=== PATIENT | female | born 1970 | race American Indian/Alaskan Native ===

== ENCOUNTER 2016-11-25 20:01 | Emergency (ER) | payer MEDICAID, OTHER ==
[2016-11-25 20:01] VITALS: BMI 20.5
[2016-11-25 20:12] VITALS: BP 135/71; PULSE 95; RESP 16; TEMP 98.2; O2SAT 100
== END 2016-11-25 23:07 | disposition left against medical advice (07) ==
LOC: H.ER 20:01
DX: Z02.89 Encounter for other administrative examinations (principal)

== ENCOUNTER 2016-12-13 03:48 | Emergency (ER) | payer OTHER ==
[2016-12-13 03:49] VITALS: BMI 20.5
[2016-12-13 04:42] VITALS: BP 115/71; PULSE 90; RESP 16; TEMP 98.2; O2SAT 99
--- NOTE | 2016-12-13 04:48 | ED PDOC ---
HPI: Abdomen Time Seen by Provider: 12/13/16 03:50 Chief Complaint (Nursing): Abdominal Pain Chief Complaint (Provider): knee pain, would like rebeka bandage History Per: Patient Onset/Duration Of Symptoms: Other Current Symptoms Are (Timing): Other (unsure) Pain Scale Rating Of: 5 Quality Of Discomfort: Unable To Describe Associated Symptoms: Vomiting. denies: Fever, Diarrhea, Loss Of Appetite Additional History Per: Patient Additional Complaint(s): 46 y/o female presented to ED with chief compliant of abdominal pain with vomiting, however at time of evaluation, pt reports her left knee hurts and would like a rebeka bandage, and as far as the vomiting goes, she started vomiting yesterday but does not want it to be worked up as she will be seeing a specialist tomorrow. at this point she would like a rebeka bandage for knee, does not want anything else worked up. No other complaints otherwise Past Medical History Vital Signs: Last Vital Signs Temp 98.2 F 12/13/16 04:00 Pulse 90 12/13/16 04:00 Resp 16 12/13/16 04:00 BP 115/71 12/13/16 04:00 Pulse Ox 99 12/13/16 04:58 - Medical History PMH: Bronchitis, Depression (denies), Schizophrenia (denies) - Surgical History Surgical History: Back Surgery - Family History Family History: States: Unknown Family Hx - Immunization History Hx Tetanus Toxoid Vaccination: No Hx Influenza Vaccination: No Hx Pneumococcal Vaccination: No - Home Medications Home Medications: Ambulatory Orders Medication Instructions Recorded Famotidine [Pepcid] 20 mg PO BID PRN #15 tab 12/03/16 Ketoconazole 2% Cr [Nizoral] 15 gm EXT DAILY #1 tube 12/03/16 Ondansetron [Zofran Odt] 4 mg PO Q8 PRN #10 odt 12/03/16 - Allergies Allergies/Adverse Reactions: Allergies Allergy/AdvReac Type Severity Reaction Status Date / Time Penicillins AdvReac VAGINAL Verified 12/03/16 10:54 INFECTION Review of Systems Constitutional: Negative for: Fever Cardiovascular: Negative for: Chest Pain, Light Headedness Respiratory: Negative for: Cough, Shortness of Breath Gastrointestinal: Positive for: Vomiting, Abdominal Pain Genitourinary Female: Negative for: Dysuria, Frequency, Vaginal Discharge, Vaginal Bleeding Musculoskeletal: Positive for: Other (knee pain ) Skin: Positive for: Other (irritable ) Neurological: Negative for: Weakness, Numbness, Dizziness Physical Exam - Physical Exam Appears: Positive for: No Acute Distress Head Exam: Positive for: NORMOCEPHALIC Skin: Positive for: Warm, Dry Cardiovascular/Chest: Positive for: Regular Rate, Rhythm, Chest Non Tender. Negative for: Edema, Murmur Respiratory: Positive for: Normal Breath Sounds. Negative for: Wheezing, Respiratory Distress Gastrointestinal/Abdominal: Positive for: Bowel Sounds, Soft. Negative for: Tenderness, Organomegaly, Mass, Distended, Guarding Extremity: Positive for: Normal ROM, Tenderness. Negative for: Calf Tenderness , Deformity, Swelling Neurologic/Psych: Positive for: Alert, gun stocker II-XII, Oriented. Negative for: Motor/Sensory Deficits - ECG O2 Sat by Pulse Oximetry: 99 - Progress ED Course And Treament: Pt declines work up of presenting chief complaint, left knee wrapped in rebeka bandage Pt PE WNL, pt advised to follow up with her PCP Disposition - Clinical Impression Clinical Impression: Knee pain, chronic - Patient ED Disposition Is Patient to be Admitted: No - Disposition Disposition: Routine/Home Disposition Time: 04:50 Condition: STABLE Additional Instructions: Please follow up with your PCP in the next 48hrs If vomiting persist return to ED Drink lot of water to stay hydrated Instructions: Knee Pain (ED)
== END 2016-12-13 06:51 | disposition home or self-care (01) ==
LOC: H.ER 03:48
DX: Z86.59 Personal history of other mental and behavioral disorders (principal)

== ENCOUNTER 2017-01-03 19:10 | Emergency (ER) | payer OTHER ==
[2017-01-03 19:10] VITALS: BMI 20.5
[2017-01-03 19:27] VITALS: BP 122/74; PULSE 92; RESP 16; TEMP 98.6; O2SAT 100
[2017-01-03] MEDS ORDERED: DiphenhydrAMINE 50 mg/ml Inj IM STA (19:38)
--- NOTE | 2017-01-03 19:41 | ED PDOC ---
HPI: Skin/Bite Injury Time Seen by Provider: 01/03/17 19:29 Chief Complaint (Nursing): Abnormal Skin Integrity Chief Complaint (Provider): Abnormal Skin Integrity History Per: Patient History/Exam Limitations: no limitations Current Symptoms Are (Timing): Still Present Additional Complaint(s): Diane Garsia is a 46 year old female who presents to the emergency department with a complaint of general body itch associated with secondary left knee pain. Denied fever or chills. Patient was recently seen at [facility] for the left knee pain where a knee brace was applied and xray was performed which showed no findings of acute changes. She stated she is having a possible allergic reaction to her Risperdal. PMD: none provided Past Medical History Reviewed: Historical Data, Nursing Documentation, Vital Signs Vital Signs: Last Vital Signs Temp 98.6 F 01/03/17 19:24 Pulse 92 H 01/03/17 19:24 Resp 16 01/03/17 19:24 BP 122/74 01/03/17 19:24 Pulse Ox 100 01/03/17 19:41 - Medical History PMH: Bronchitis, Depression (denies), Schizophrenia (denies) - Surgical History Surgical History: Back Surgery - Family History Family History: States: Unknown Family Hx - Immunization History Hx Tetanus Toxoid Vaccination: No Hx Influenza Vaccination: No Hx Pneumococcal Vaccination: No - Home Medications Home Medications: Ambulatory Orders Medication Instructions Recorded No Known Home Med 12/18/16 - Allergies Allergies/Adverse Reactions: Allergies Allergy/AdvReac Type Severity Reaction Status Date / Time Penicillins AdvReac VAGINAL Verified 12/18/16 00:32 INFECTION Review of Systems ROS Statement: Except As Marked, All Systems Reviewed And Found Negative Constitutional: Negative for: Fever, Chills Musculoskeletal: Positive for: Other (left knee pain) Skin: Positive for: Rash (general throughout body) Physical Exam - Reviewed Nursing Documentation Reviewed: Yes Vital Signs Reviewed: Yes - Physical Exam Appears: Positive for: Well, Non-toxic, No Acute Distress Head Exam: Positive for: ATRAUMATIC, NORMAL INSPECTION, NORMOCEPHALIC Skin: Positive for: Normal Color. Negative for: Rash Cardiovascular/Chest: Positive for: Regular Rate, Rhythm Respiratory: Positive for: CNT, Normal Breath Sounds Back: Positive for: Normal Inspection Extremity: Positive for: Normal ROM, Other (left knee brace applied). Negative for: Deformity, Swelling Neurologic/Psych: Positive for: Alert (x3), project archivist II-XII, Oriented - ECG O2 Sat by Pulse Oximetry: 100 (RA) Pulse Ox Interpretation: Normal Medical Decision Making Medical Decision Making: Initial Impression: Left knee pain; Itchiness Initial Plan: * Benadryl 25mg IM Time: 1939 --Upon provider evaluation, patient medically stable and requires no further treatment in the ED at this time. Patient will be discharged home. Counseling was provided and all questions were answered regarding diagnosis and need for follow up with PCP. There is agreement to discharge plan. Return if symptoms persist or worsen. Clinical Impression: Left knee pain; General Itchiness Scribe Attestation: Documented by Leonarda Quinonez, acting as a scribe for Renetta Leblanc MD. Provider Scribe Attestation: All medical record entries made by the Scribe were at my direction and personally dictated by me. I have reviewed the chart and agree that the record accurately reflects my personal performance of the history, physical exam, medical decision making, and the department course for this patient. I have also personally directed, reviewed, and agree with the discharge instructions and disposition. Disposition - Clinical Impression Clinical Impression: Itching, Knee pain - Patient ED Disposition Is Patient to be Admitted: No Doctor Will See Patient In The: Office Counseled Patient/Family Regarding: Diagnosis, Need For Followup - Disposition Referrals: Kee Acevedo MD [Staff Provider] - Disposition: Routine/Home Disposition Time: 19:40 Condition: STABLE Instructions: Knee Pain (ED), Itchy Skin (ED) Forms: [employer] (Vietnamese)
== END 2017-01-03 20:20 | disposition home or self-care (01) ==
LOC: H.ER 19:10
DX: R21 Rash and other nonspecific skin eruption (principal); M25.562 Pain in left knee; Z88.0 Allergy status to penicillin

== ENCOUNTER 2017-01-21 13:09 | Emergency (ER) | payer OTHER ==
[2017-01-21 13:09] VITALS: BMI 20.5
[2017-01-21 13:13] VITALS: BP 118/54; PULSE 92; RESP 16; TEMP 97; O2SAT 99
--- NOTE | 2017-01-21 14:59 | ED PDOC ---
HPI: General Adult Time Seen by Provider: 01/21/17 13:33 Chief Complaint (Nursing): Abnormal Skin Integrity Chief Complaint (Provider): leg pain History Per: Patient History/Exam Limitations: no limitations Additional Complaint(s): 46yo F states to [facility]LP her left leg sprain and is requesting an orthopedic referral. Pt did not mention to MLP rash. denies hematuira. Pt is homeless and does not have a PMD Past Medical History Reviewed: Historical Data, Nursing Documentation, Vital Signs Vital Signs: Last Vital Signs Temp 97 F L 01/21/17 13:11 Pulse 92 H 01/21/17 13:11 Resp 16 01/21/17 13:11 BP 118/54 L 01/21/17 13:11 Pulse Ox 99 01/21/17 13:11 - Medical History PMH: Bronchitis, Depression (denies), Schizophrenia (denies) - Surgical History Surgical History: Back Surgery - Family History Family History: States: Unknown Family Hx - Immunization History Hx Tetanus Toxoid Vaccination: No Hx Influenza Vaccination: No Hx Pneumococcal Vaccination: No - Home Medications Home Medications: Ambulatory Orders Medication Instructions Recorded No Known Home Med 12/18/16 - Allergies Allergies/Adverse Reactions: Allergies Allergy/AdvReac Type Severity Reaction Status Date / Time Penicillins AdvReac VAGINAL Unverified 01/21/17 13:14 INFECTION Review of Systems ROS Statement: Except As Marked, All Systems Reviewed And Found Negative Skin: Negative for: Rash Physical Exam - Reviewed Nursing Documentation Reviewed: Yes Vital Signs Reviewed: Yes - Physical Exam Appears: Positive for: Well, Non-toxic, No Acute Distress Skin: Positive for: Normal Color, Warm, DRY Cardiovascular/Chest: Positive for: Regular Rate, Rhythm Respiratory: Positive for: CNT, Normal Breath Sounds Extremity: Positive for: Normal ROM. Negative for: Swelling Neurologic/Psych: Positive for: Alert, Oriented - ECG O2 Sat by Pulse Oximetry: 99 Medical Decision Making Medical Decision Making: pt requests to rest in ER. allowed to do so and advised to have f/u with a pmd. Disposition - Clinical Impression Clinical Impression: Knee pain, chronic - Patient ED Disposition Is Patient to be Admitted: No Counseled Patient/Family Regarding: Studies Performed, Diagnosis, Need For Followup - Disposition Referrals: [facility] [Outside] Disposition: Routine/Home Disposition Time: 15:01 Condition: STABLE Instructions: Knee Pain (ED) Forms: [employer] (Khmer)
== END 2017-01-21 15:33 | disposition home or self-care (01) ==
LOC: H.ER 13:09
DX: M25.562 Pain in left knee (principal)

== ENCOUNTER 2017-01-23 18:52 | Emergency (ER) | payer OTHER ==
[2017-01-23 18:52] VITALS: BMI 20.5
[2017-01-23 19:05] VITALS: BP 114/58; PULSE 92; RESP 18; TEMP 98.3; O2SAT 100
--- NOTE | 2017-01-23 19:52 | ED PDOC ---
HPI: SOB/CHF/COPD Time Seen by Provider: 01/23/17 19:40 Chief Complaint (Nursing): Shortness Of Breath Chief Complaint (Provider): Shortness of breath. Dermatitis History Per: Patient History/Exam Limitations: no limitations Additional Complaint(s): Diane Garsia is known to the ED for multiple visits who presents to the ED today for chief complaints of dermatitis and shortness of breath. Patient reports itching in various body areas. states she thinks she is allergic to her medication. Denies any associated symptoms. Of note, patient ran out of Benadryl medication and needs more of it, and also has a history of asthma and needs her albuterol medication. PMD: None. Past Medical History Reviewed: Historical Data, Nursing Documentation, Vital Signs Vital Signs: Last Vital Signs Temp 98.3 F 01/23/17 19:03 Pulse 92 H 01/23/17 19:03 Resp 18 01/23/17 19:21 BP 114/58 L 01/23/17 19:03 Pulse Ox 100 01/23/17 20:03 - Medical History PMH: Bronchitis, Depression (denies), Schizophrenia (denies) - Surgical History Surgical History: Back Surgery - Family History Family History: States: Unknown Family Hx - Immunization History Hx Tetanus Toxoid Vaccination: No Hx Influenza Vaccination: No Hx Pneumococcal Vaccination: No - Home Medications Home Medications: Ambulatory Orders Medication Instructions Recorded Albuterol HFA [Ventolin HFA 90 2 puff IH Q6 #200 puff 01/23/17 mcg/actuation (8 g)] DiphenhydrAMINE [Benadryl] 25 mg PO Q6 PRN #20 cap 01/23/17 Mask, Face [Nebulizer Aerosol Mask 1 dev XX PRN PRN #1 dev 01/23/17 Adult] Nitrofurantoin Macrocrystals 100 mg PO BID #14 cap 01/24/17 [Macrobid] - Allergies Allergies/Adverse Reactions: Allergies Allergy/AdvReac Type Severity Reaction Status Date / Time Penicillins AdvReac VAGINAL Verified 01/23/17 19:03 INFECTION Review of Systems ROS Statement: Except As Marked, All Systems Reviewed And Found Negative Constitutional: Positive for: Other (Itchy in various body areas.) Respiratory: Positive for: Shortness of Breath Physical Exam - Reviewed Nursing Documentation Reviewed: Yes Vital Signs Reviewed: Yes - Physical Exam Appears: Positive for: Well, Non-toxic, No Acute Distress Head Exam: Positive for: ATRAUMATIC, NORMAL INSPECTION, NORMOCEPHALIC Skin: Positive for: Normal Color, Dry Eye Exam: Positive for: Normal appearance ENT: Positive for: Normal ENT Inspection Neck: Positive for: Normal Cardiovascular/Chest: Positive for: Regular Rate, Rhythm Respiratory: Positive for: Normal Breath Sounds Gastrointestinal/Abdominal: Positive for: Normal Exam Back: Positive for: Normal Inspection Rectal: Positive for: Deferred Extremity: Positive for: Normal ROM Lymphatic: Positive for: Deferred Neurologic/Psych: Positive for: Alert, Oriented - ECG O2 Sat by Pulse Oximetry: 100 (RA) Pulse Ox Interpretation: Normal Medical Decision Making Medical Decision Makin: Initial Impression: Dermatitis and asthma. Initial Plan: * Benadryl * Re-Evaluation Patient advised to follow up with PMD. Scribe Attestation: Documented by Janay Stoner acting as a scribe for Bisi Bob PA-C. Provider Scribe Attestation: All medical record entries made by the Scribe were at my direction and personally dictated by me. I have reviewed the chart and agree that the record accurately reflects my personal performance of the history, physical exam, medical decision making, and the department course for this patient. I have also personally directed, reviewed, and agree with the discharge instructions and disposition. Time Disposition - Clinical Impression Clinical Impression: Asthma, Itching - Patient ED Disposition Is Patient to be Admitted: No Counseled Patient/Family Regarding: Need For Followup - Disposition Disposition: Routine/Home Disposition Time: 13:24 Condition: STABLE Prescriptions: Albuterol HFA [Ventolin HFA 90 mcg/actuation (8 g)] 2 puff IH Q6 #200 puff DiphenhydrAMINE [Benadryl] 25 mg PO Q6 PRN #20 cap PRN Reason: Itching / Pruritus Mask, Face [Nebulizer Aerosol Mask Adult] 1 dev XX PRN PRN #1 dev PRN Reason: Cough Instructions: Asthma (ED) Forms: [employer] (Telugu)
== END 2017-01-23 19:57 | disposition home or self-care (01) ==
LOC: H.ER 18:52
DX: J45.909 Unspecified asthma, uncomplicated (principal); L29.9 Pruritus, unspecified

== ENCOUNTER 2017-01-24 21:00 | Emergency (ER) | payer OTHER ==
[2017-01-24 21:00] VITALS: BMI 20.5
[2017-01-24 21:07] VITALS: BP 125/74; PULSE 84; RESP 20; TEMP 98; O2SAT 100
--- NOTE | 2017-01-24 21:16 | ED PDOC ---
HPI: Female Pain Time Seen by Provider: 01/24/17 21:09 Chief Complaint (Nursing): Female Genitourinary Chief Complaint (Provider): dysuria, urgency History Per: Patient History/Exam Limitations: no limitations Additional Complaint(s): 46 year old non-domiciled female with history of urinary tract infections who presents to the ED with a chief complaint of dysuria and urgency that started 3 days ago. She denies abd pain, back pain, fever, chills, nausea or vomiting. Patient denies any concern for STD. PMD: None. Past Medical History Reviewed: Historical Data, Nursing Documentation, Vital Signs Vital Signs: Last Vital Signs Temp 98.0 F 01/24/17 21:05 Pulse 84 01/24/17 21:05 Resp 20 01/24/17 21:05 BP 125/74 01/24/17 21:05 Pulse Ox 100 01/24/17 21:05 - Medical History PMH: Bronchitis - Surgical History Surgical History: Back Surgery Other surgeries: Left leg surgery. - Family History Family History: States: No Known Family Hx - Living Arrangements Living Arrangements: Other (non-domiciled) - Social History Current smoker - smoking cessation education provided: Yes Ex-Smoker (has not smoked in the last 12 months): No Alcohol: None Drugs: Denies - Immunization History Hx Tetanus Toxoid Vaccination: No Hx Influenza Vaccination: No Hx Pneumococcal Vaccination: No - Home Medications Home Medications: Ambulatory Orders Medication Instructions Recorded Albuterol HFA [Ventolin HFA 90 2 puff IH Q6 #200 puff 01/23/17 mcg/actuation (8 g)] DiphenhydrAMINE [Benadryl] 25 mg PO Q6 PRN #20 cap 01/23/17 Mask, Face [Nebulizer Aerosol Mask 1 dev XX PRN PRN #1 dev 01/23/17 Adult] Nitrofurantoin Macrocrystals 100 mg PO BID #14 cap 01/24/17 [Macrobid] - Allergies Allergies/Adverse Reactions: Allergies Allergy/AdvReac Type Severity Reaction Status Date / Time Penicillins AdvReac VAGINAL Verified 01/23/17 19:03 INFECTION Review of Systems ROS Statement: Except As Marked, All Systems Reviewed And Found Negative Constitutional: Negative for: Fever, Chills Cardiovascular: Negative for: Chest Pain Respiratory: Negative for: Cough Gastrointestinal: Negative for: Nausea, Vomiting Genitourinary Female: Positive for: Dysuria, Frequency (and urgency) Neurological: Negative for: Headache, Dizziness Physical Exam - Reviewed Nursing Documentation Reviewed: Yes Vital Signs Reviewed: Yes - Physical Exam Appears: Positive for: Well, Non-toxic, No Acute Distress Cardiovascular/Chest: Positive for: Regular Rate, Rhythm, Murmur Respiratory: Positive for: Normal Breath Sounds Gastrointestinal/Abdominal: Positive for: Soft. Negative for: Tenderness, Distended, Guarding, Rebound Back: Negative for: L CVA Tenderness, R CVA Tenderness Extremity: Negative for: Pedal Edema Neurologic/Psych: Positive for: Alert, Oriented - Laboratory Results Urine POC: Negative Urine dip results: Negative for: Leukocyte Esterase, Blood, Nitrate, Ketones, Glucose, Bilirubin, Protein - ECG O2 Sat by Pulse Oximetry: 100 (RA) Pulse Ox Interpretation: Normal Medical Decision Making Medical Decision Makin: Initial impression: 46 year old with dysuria and frequency Initial Plan: * Urine dip * Urine culture U dip negative, however will treat with rx macrobid given presenting symptoms. Patient was instructed to take rx meds as directed, drink plenty of fluids and follow up with clinic. Scribe Attestation: Documented by Janay Stoner acting as a scribe for Verona Constantino PA-C. Provider Scribe Attestation: All medical record entries made by the Scribe were at my direction and personally dictated by me. I have reviewed the chart and agree that the record accurately reflects my personal performance of the history, physical exam, medical decision making, and the department course for this patient. I have also personally directed, reviewed, and agree with the discharge instructions and disposition. Time Disposition - Clinical Impression Clinical Impression: Dysuria - Patient ED Disposition Is Patient to be Admitted: No Counseled Patient/Family Regarding: Studies Performed, Diagnosis, Need For Followup, Rx Given - Disposition Referrals: [facility] [Outside] Disposition: Routine/Home Disposition Time: 22:06 Condition: STABLE Additional Instructions: Take rx meds as directed. Drink plenty of fluids. Follow up with clinic in 2- 3 days. Prescriptions: Nitrofurantoin Macrocrystals [Macrobid] 100 mg PO BID #14 cap Instructions: Dysuria (ED) Forms: [employer] (Greenlandic)
== END 2017-01-24 23:16 | disposition home or self-care (01) ==
LOC: H.ER 21:00
DX: R30.0 Dysuria (principal); Z87.440 Personal history of urinary (tract) infections; Z88.0 Allergy status to penicillin

== ENCOUNTER 2017-02-07 13:48 | Emergency (ER) | payer OTHER ==
[2017-02-07 13:49] VITALS: BMI 20.5
[2017-02-07 13:57] VITALS: BP 124/70; PULSE 100; RESP 18; TEMP 98.1; O2SAT 99
--- NOTE | 2017-02-07 14:21 | ED PDOC ---
HPI: General Adult Time Seen by Provider: 02/07/17 14:11 Chief Complaint (Nursing): GI Problem Chief Complaint (Provider): Lower extremity pain History Per: Patient History/Exam Limitations: no limitations Onset/Duration Of Symptoms: Persistent Have you had recent travel within the past 21 days to any of the following countries: [place], [place], [place] or [place]?: No Current Symptoms Are (Timing): Still Present Additional Complaint(s): The patient is a 46yo female, presents to the ED with initial complaints of abdominal pain, vomiting and nausea as well as lower extremity pain. Upon interview, patient states she does not have abdominal pain and is currently eating potato chips without difficulty. Patient states she presents today requesting an rebeka wrap for her knee pain. Patient denies any other medical complaints. Past Medical History Reviewed: Historical Data, Nursing Documentation, Vital Signs Vital Signs: Last Vital Signs Temp 98.1 F 02/07/17 13:55 Pulse 100 H 02/07/17 13:55 Resp 18 02/07/17 13:55 BP 124/70 02/07/17 13:55 Pulse Ox 99 02/07/17 13:55 - Medical History PMH: Bronchitis, Depression (denies), Schizophrenia (denies) - Surgical History Surgical History: Back Surgery - Family History Family History: States: Unknown Family Hx - Immunization History Hx Tetanus Toxoid Vaccination: No Hx Influenza Vaccination: No Hx Pneumococcal Vaccination: No - Home Medications Home Medications: Ambulatory Orders Medication Instructions Recorded Albuterol HFA [Ventolin HFA 90 2 puff IH Q6 #200 puff 01/23/17 mcg/actuation (8 g)] DiphenhydrAMINE [Benadryl] 25 mg PO Q6 PRN #20 cap 01/23/17 Mask, Face [Nebulizer Aerosol Mask 1 dev XX PRN PRN #1 dev 01/23/17 Adult] Nitrofurantoin Macrocrystals 100 mg PO BID #14 cap 01/24/17 [Macrobid] - Allergies Allergies/Adverse Reactions: Allergies Allergy/AdvReac Type Severity Reaction Status Date / Time Penicillins AdvReac VAGINAL Verified 01/23/17 19:03 INFECTION Review of Systems ROS Statement: Except As Marked, All Systems Reviewed And Found Negative Gastrointestinal: Negative for: Nausea, Vomiting, Abdominal Pain Musculoskeletal: Positive for: Leg Pain ("knee sprain") Physical Exam - Reviewed Nursing Documentation Reviewed: Yes Vital Signs Reviewed: Yes - Physical Exam Appears: Positive for: Well Head Exam: Positive for: ATRAUMATIC, NORMAL INSPECTION, NORMOCEPHALIC Skin: Positive for: Normal Color Eye Exam: Positive for: Normal appearance Neck: Positive for: Normal Respiratory: Negative for: Respiratory Distress Gastrointestinal/Abdominal: Positive for: Normal Exam, Other (patient eating chips in room, denies abdominal discomfort) Extremity: Positive for: Normal ROM. Negative for: Deformity, Swelling Neurologic/Psych: Positive for: Alert, Oriented. Negative for: Motor/Sensory Deficits - ECG O2 Sat by Pulse Oximetry: 99 (RA) Pulse Ox Interpretation: Normal Medical Decision Making Medical Decision Making: Time: 1415 Impression: Knee pain Plan: -- Patient given rebeka wrap for her knee. Patient stable for d/c home. Scribe Attestation: Documented by Verónica Raymond acting as a scribe for ILIANA Rivera Provider Attestation: All medical record entries made by the Scribe were at my direction and personally dictated by me. I have reviewed the chart and agree that the record accurately reflects my personal performance of the history, physical exam, medical decision making, and the department course for this patient. I have also personally directed, reviewed, and agree with the discharge instructions and disposition. Disposition - Clinical Impression Clinical Impression: Knee pain - Disposition Disposition: Routine/Home Disposition Time: 14:15 Condition: STABLE Instructions: Knee Pain (ED)
== END 2017-02-07 14:21 | disposition home or self-care (01) ==
LOC: H.ER 13:48
DX: M25.569 Pain in unspecified knee (principal)

== ENCOUNTER 2017-02-09 09:08 | Emergency (ER) | payer OTHER ==
[2017-02-09 09:14] VITALS: BMI 22.4
[2017-02-09 09:15] VITALS: BP 143/93; PULSE 100; RESP 18; TEMP 98.7; O2SAT 98
--- NOTE | 2017-02-09 09:39 | ED PDOC ---
HPI: Allergic Reaction Time Seen by Provider: 02/09/17 09:23 Chief Complaint (Nursing): Abnormal Skin Integrity Additional Complaint(s): Patient is a 46 y/o F presenting with complaint of rash. She reports that she is having an allergic reaction and has an itchy rash. She is requesting benadryl. I attempted to examine patient's rash and she refused examination and reported that she wanted to leave ED. Past Medical History Vital Signs: Last Vital Signs Temp 98.7 F 02/09/17 09:14 Pulse 100 H 02/09/17 09:14 Resp 18 02/09/17 09:14 BP 143/93 H 02/09/17 09:14 Pulse Ox 98 02/09/17 09:14 - Medical History PMH: Bronchitis, Depression (denies), Schizophrenia (denies) - Surgical History Surgical History: Back Surgery - Family History Family History: States: Unknown Family Hx - Immunization History Hx Tetanus Toxoid Vaccination: No Hx Influenza Vaccination: No Hx Pneumococcal Vaccination: No - Home Medications Home Medications: Ambulatory Orders Medication Instructions Recorded Albuterol HFA [Ventolin HFA 90 2 puff IH Q6 #200 puff 01/23/17 mcg/actuation (8 g)] DiphenhydrAMINE [Benadryl] 25 mg PO Q6 PRN #20 cap 01/23/17 Mask, Face [Nebulizer Aerosol Mask 1 dev XX PRN PRN #1 dev 01/23/17 Adult] Nitrofurantoin Macrocrystals 100 mg PO BID #14 cap 01/24/17 [Macrobid] - Allergies Allergies/Adverse Reactions: Allergies Allergy/AdvReac Type Severity Reaction Status Date / Time Penicillins AdvReac VAGINAL Verified 01/23/17 19:03 INFECTION Review of Systems Constitutional: Negative for: Fever, Chills ENT: Negative for: Mouth Pain, Mouth Swelling, Throat Pain, Throat Swelling Cardiovascular: Negative for: Chest Pain, Palpitations, Paroxysmal Noc. Dyspnea , Light Headedness Respiratory: Negative for: Cough, Shortness of Breath, SOB with Exertion, Pleuritic Pain, Sputum, Wheezing Gastrointestinal: Negative for: Nausea, Vomiting, Abdominal Pain, Diarrhea, Constipation Skin: Positive for: Rash Neurological: Negative for: Weakness, Numbness Physical Exam - Reviewed Nursing Documentation Reviewed: Yes Vital Signs Reviewed: Yes - Physical Exam Appears: Positive for: Well, Non-toxic, No Acute Distress Eye Exam: Positive for: EOMI, PERRL ENT: Positive for: Other (Normal phonation, Speaking in complete sentences) Neurologic/Psych: Positive for: Alert, Oriented, Gait (steady) - ECG O2 Sat by Pulse Oximetry: 98 - Progress ED Course And Treament: Patient is complaining of rash. She is phonating normally with normal vitals and no signs of respiratory involvement. She is refusing examination and additional treatment. She ambulated out of ED alone with steady gait. I indicated that patient could return at any time if she wanted evaluation of her rash. Disposition - Clinical Impression Clinical Impression: Rash - Disposition Disposition: Left W/O Treatment Disposition Time: 09:44 Condition: UNKNOWN
== END 2017-02-09 09:44 | disposition left against medical advice (07) ==
LOC: H.ER 09:08
DX: T78.40XA Allergy, unspecified, initial encounter (principal); Z88.0 Allergy status to penicillin

== ENCOUNTER 2017-03-30 14:20 | Emergency (ER) | payer SELFPAY ==
[2017-03-30 14:20] VITALS: BMI 22.4
[2017-03-30 14:31] VITALS: BP 147/87; PULSE 92; RESP 18; O2SAT 100
== END 2017-03-30 14:45 | disposition left against medical advice (07) ==
LOC: H.ER 14:20
DX: Z02.89 Encounter for other administrative examinations (principal)

== ENCOUNTER 2017-04-24 17:06 | Emergency (ER) | payer MEDICAID ==
[2017-04-24 17:06] VITALS: BMI 22.4
[2017-04-24 17:36] VITALS: BP 142/80; PULSE 93; RESP 16; TEMP 98; O2SAT 100
--- NOTE | 2017-04-24 17:58 | ED PDOC ---
HPI: General Adult Time Seen by Provider: 04/24/17 17:51 Chief Complaint (Nursing): Abdominal Pain Chief Complaint (Provider): knee pain History Per: Patient Additional Complaint(s): 47-year-old female presents to emergency department with persistent pain to left knee. Patient is requesting an Jay wrap and a referral to an orthopedist. Patient denies abdominal pain despite triage note stating otherwise. She denies fall or trauma. Past Medical History Reviewed: Historical Data, Nursing Documentation, Vital Signs Vital Signs: Last Vital Signs Temp 98.0 F 04/24/17 17:34 Pulse 93 H 04/24/17 17:34 Resp 16 04/24/17 17:34 BP 142/80 04/24/17 17:34 Pulse Ox 100 04/24/17 17:34 - Medical History PMH: Asthma, Depression, Schizophrenia - Surgical History Surgical History: Back Surgery - Family History Family History: States: No Known Family Hx - Social History Current smoker - smoking cessation education provided: No Alcohol: None Drugs: Denies - Home Medications Home Medications: Ambulatory Orders Medication Instructions Recorded Albuterol 0.083% [Albuterol 75 ml IH DAILY #15 neb 04/19/17 Sulfate 3 Ml] Albuterol HFA [Ventolin HFA 90 2 puff IH Q6 #200 puff 04/19/17 mcg/actuation (8 g)] Mask, Face [Nebulizer Aerosol Mask 1 dev XX PRN PRN #1 dev 04/19/17 Adult] Non-Formulary 1 ea XX DAILY #1 ea 04/19/17 - Allergies Allergies/Adverse Reactions: Allergies Allergy/AdvReac Type Severity Reaction Status Date / Time Penicillins AdvReac VAGINAL Verified 04/24/17 17:33 INFECTION Review of Systems ROS Statement: Except As Marked, All Systems Reviewed And Found Negative Musculoskeletal: Positive for: Other (left knee pain) Physical Exam - Reviewed Nursing Documentation Reviewed: Yes Vital Signs Reviewed: Yes - Physical Exam Appears: Positive for: Well, Non-toxic, No Acute Distress Comments: Patient refused physical exam - ECG O2 Sat by Pulse Oximetry: 100 Pulse Ox Interpretation: Normal Medical Decision Making Medical Decision Makin year with chronic left knee pain Patient given jay wrap and referral to production expert orthopedist. She is ambulatory with steady gait, stable for discharge. Disposition - Clinical Impression Clinical Impression: Knee pain, left - Patient ED Disposition Is Patient to be Admitted: No Counseled Patient/Family Regarding: Need For Followup - Disposition Referrals: Scot Tafoya III, MD [Staff Provider] - Disposition: Routine/Home Disposition Time: 17:56 Condition: STABLE Additional Instructions: Tylenol or Motrin for pain as needed. Follow-up with orthopedist. Instructions: Knee Pain (ED)
== END 2017-04-24 18:40 | disposition home or self-care (01) ==
LOC: H.ER 17:06
DX: M25.562 Pain in left knee (principal); F20.9 Schizophrenia, unspecified; F32.9 Major depressive disorder, single episode, unspecified; J45.909 Unspecified asthma, uncomplicated; Z88.0 Allergy status to penicillin

== ENCOUNTER 2017-07-03 14:22 | Emergency (ER) | payer MEDICAID, OTHER ==
[2017-07-03 14:23] VITALS: BMI 22.4
[2017-07-03 14:33] VITALS: BP 137/78; PULSE 96; RESP 16; TEMP 97; O2SAT 99
--- NOTE | 2017-07-03 15:21 | ED PDOC ---
Lower Extremity Pain/Injury Time Seen by Provider: 07/03/17 14:48 Chief Complaint (Nursing): Lower Extremity Problem/Injury Chief Complaint (Provider): Lower Extremity Problem History Per: Patient History/Exam Limitations: no limitations Onset/Duration Of Symptoms: Persistent, Other (onset x4-5 weeks [employer]) Current Symptoms Are (Timing): Still Present Additional Complaint(s): 47 year old female presents to ED with complaints of left knee pain x4-5 weeks [employer]. Patient states she had fallen at the time and requests an orthopedic referral. (-) numbness, tingling, or other injuries. PCP: Non [facility] - Knee Description Of Injury: Fell Past Medical History Reviewed: Historical Data, Nursing Documentation, Vital Signs Vital Signs: Last Vital Signs Temp 97 F L 07/03/17 14:30 Pulse 96 H 07/03/17 14:30 Resp 16 07/03/17 14:30 BP 137/78 07/03/17 14:30 Pulse Ox 99 07/03/17 14:30 - Medical History PMH: Asthma, Bronchitis, Depression (denies), Schizophrenia (denies), Chronic Pain (left knee) - Surgical History Surgical History: Back Surgery - Family History Family History: States: Unknown Family Hx - Living Arrangements Living Arrangements: With Family - Immunization History Hx Tetanus Toxoid Vaccination: No Hx Influenza Vaccination: No Hx Pneumococcal Vaccination: No - Home Medications Home Medications: Ambulatory Orders Medication Instructions Recorded Albuterol 0.083% [Albuterol 75 ml IH DAILY #15 neb 04/19/17 Sulfate 3 Ml] Albuterol HFA [Ventolin HFA 90 2 puff IH Q6 #200 puff 04/19/17 mcg/actuation (8 g)] - Allergies Allergies/Adverse Reactions: Allergies Allergy/AdvReac Type Severity Reaction Status Date / Time Penicillins Allergy Intermediate VAGINAL Verified 06/01/17 08:09 INFECTION Review of Systems ROS Statement: Except As Marked, All Systems Reviewed And Found Negative Musculoskeletal: Positive for: Leg Pain (left knee pain) Neurological: Negative for: Numbness Physical Exam - Reviewed Nursing Documentation Reviewed: Yes Vital Signs Reviewed: Yes - Physical Exam Appears: Positive for: Non-toxic, No Acute Distress Skin: Positive for: Normal Color, Warm, Dry Respiratory: Negative for: Respiratory Distress Pulses-Dorsalis Pedis (L): 2+ Pulses-Dorsalis Pedis (R): 2+ Extremity: Positive for: Normal ROM. Negative for: Tenderness, Deformity, Swelling, Other ((-) joint laxity) Neurologic/Psych: Positive for: Alert, Oriented. Negative for: Motor/Sensory Deficits - ECG O2 Sat by Pulse Oximetry: 99 (RA) Pulse Ox Interpretation: Normal Medical Decision Making Medical Decision Makin Initial impression: knee injury Initial plan: * Orthopedic information given 1515 Patient is stable for discharge home. Scribe Attestation: Documented by Dinorah Verma, acting as a scribe for Thomas Wakefield PA-C. Provider Scribe Attestation: All medical record entries made by the Scribe were at my direction and personally dictated by me. I have reviewed the chart and agree that the record accurately reflects my personal performance of the history, physical exam, medical decision making, and the department course for this patient. I have also personally directed, reviewed, and agree with the discharge instructions and disposition. Disposition - Clinical Impression Clinical Impression: Knee injury - Disposition Referrals: [facility] [place] [Outside] [facility] [Outside] Darron Barron MD [Staff Provider] - Disposition: Routine/Home Disposition Time: 15:15 Condition: STABLE Additional Instructions: Follow up with orthopedist for further evaluation. Instructions: Knee Sprain (ED) Forms: [employer] (Bengali) Print Language: KOREAN
== END 2017-07-03 16:00 | disposition home or self-care (01) ==
LOC: H.ER 14:22
DX: M25.562 Pain in left knee (principal); G89.29 Other chronic pain; Z88.0 Allergy status to penicillin

== ENCOUNTER 2017-09-28 20:04 | Emergency (ER) | payer MEDICAID, OTHER ==
[2017-09-28 20:04] VITALS: BMI 22.4
[2017-09-28 20:10] VITALS: BP 136/88; PULSE 76; RESP 16; TEMP 96.7; O2SAT 100
--- NOTE | 2017-09-28 20:40 | ED PDOC ---
HPI: Skin/Bite Injury Time Seen by Provider: 09/28/17 20:28 Chief Complaint (Nursing): Abdominal Pain Chief Complaint (Provider): skin irritation History Per: Patient History/Exam Limitations: no limitations Onset/Duration Of Symptoms: Days Current Symptoms Are (Timing): Still Present Quality Of Symptoms: Itching Additional Complaint(s): 47 y/o nondomiciled female presents with skin irritation x 2 weeks. Patient states itching mostly on back, and has been scratching so much she noticed blood on her shirt. Patient wants to make sure she doesn't have bed bugs. Patient also reports feeling "shaky and woozy". Denies fever, headache, dizziness, extremity numbness/weakness, nausea/vomiting, chest pain, abdominal pain, known allergen, recent travel. Past Medical History Reviewed: Historical Data, Nursing Documentation, Vital Signs Vital Signs: Last Vital Signs Temp 96.7 F L 09/28/17 20:08 Pulse 76 09/28/17 20:08 Resp 16 09/28/17 20:08 BP 136/88 09/28/17 20:08 Pulse Ox 100 09/28/17 21:44 - Medical History PMH: Asthma, Bronchitis, Depression (denies (from previous triage)), Schizophrenia (denies (from previous triage)), Chronic Pain (left knee) - Surgical History Surgical History: Back Surgery - Family History Family History: States: Unknown Family Hx - Living Arrangements Living Arrangements: Alone (homeless) - Immunization History Hx Tetanus Toxoid Vaccination: No Hx Influenza Vaccination: No Hx Pneumococcal Vaccination: No - Home Medications Home Medications: Ambulatory Orders Medication Instructions Recorded Loratadine [Claritin] 10 mg PO DAILY PRN #15 tab 09/19/17 Permethrin 5% [Permethrin 5% Cream] 6 applic TOP ONCE #1 tube 09/19/17 DiphenhydrAMINE [Benadryl] 50 mg PO Q6 PRN #20 cap 09/28/17 Mineral Oil/Petrolatum,White 1 applic TP DAILY #1 tub 09/28/17 [Eucerin Creme] - Allergies Allergies/Adverse Reactions: Allergies Allergy/AdvReac Type Severity Reaction Status Date / Time Penicillins Allergy Intermediate VAGINAL Verified 09/19/17 08:30 INFECTION Review of Systems ROS Statement: Except As Marked, All Systems Reviewed And Found Negative Skin: Positive for: Rash Physical Exam - Reviewed Nursing Documentation Reviewed: Yes Vital Signs Reviewed: Yes - Physical Exam Appears: Positive for: Well, Non-toxic, No Acute Distress (sleeping) Head Exam: Positive for: ATRAUMATIC, NORMAL INSPECTION, NORMOCEPHALIC Skin: Positive for: Rash (patchy dry skin to midline back, over surgical scar; no abscess, draingage, lesions noted. Scabbed excoriations noted to upper back) Eye Exam: Positive for: Normal appearance ENT: Positive for: Normal ENT Inspection Cardiovascular/Chest: Positive for: Regular Rate, Rhythm Respiratory: Positive for: Normal Breath Sounds Gastrointestinal/Abdominal: Positive for: Normal Exam Back: Positive for: Normal Inspection Extremity: Positive for: Normal ROM Neurologic/Psych: Positive for: Alert, Oriented - ECG O2 Sat by Pulse Oximetry: 100 - Progress ED Course And Treament: Patient turned light off in exam room and sleeping on stretcher when senior writer entered room. Patient refusing accucheck and ekg, states that was all done 2 days ago. Patient seen at [facility] ED for same on 09/19, had neg work up. Patient well known to ED and provider for bed-seeking behavior Rx benadryl, eucerin provided. Advised follow up PMD 2-3 days. Return precautions given. Disposition - Clinical Impression Clinical Impression: Dry skin dermatitis - Patient ED Disposition Is Patient to be Admitted: No Counseled Patient/Family Regarding: Diagnosis, Need For Followup, Rx Given - Disposition Referrals: [facility] [Outside] Disposition: Routine/Home Disposition Time: 21:37 Condition: STABLE Prescriptions: DiphenhydrAMINE [Benadryl] 50 mg PO Q6 PRN #20 cap PRN Reason: Allergy Symptoms Mineral Oil/Petrolatum,White [Eucerin Creme] 1 applic TP DAILY #1 tub Instructions: Itchy Skin Forms: [employer] (Pakistani)
== END 2017-09-28 22:17 | disposition home or self-care (01) ==
LOC: H.ER 20:04
DX: L85.3 Xerosis cutis (principal); G89.29 Other chronic pain; Z88.0 Allergy status to penicillin

== ENCOUNTER 2017-12-18 17:29 | Emergency (ER) | payer MEDICAID, OTHER ==
[2017-12-18 17:29] VITALS: BMI 22.4
[2017-12-18 18:06] VITALS: BP 108/68; PULSE 92; RESP 16; TEMP 98.7; O2SAT 99
--- NOTE | 2017-12-18 19:43 | ED PDOC ---
HPI: General Adult Time Seen by Provider: 12/18/17 18:10 Chief Complaint (Nursing): Flu-like Symptoms Chief Complaint (Provider): body pain History Per: Patient History/Exam Limitations: no limitations Onset/Duration Of Symptoms: Days Additional Complaint(s): 47 year old female presents to the ED for an evaluation of UTI and pain all over the body. She is also requesting referral to orthopedic for left knee evaluation. Otherwise: (-) fever, (-) chills, (-) cough, (-) sore throat, (-) SOB, (-) chest pain, (-) N/V/D, (-) abdominal pain, (-) flank pain, (-) URI symptoms, (-) recent travel, (-) sick contacts. PMD: No Family Provider Past Medical History Reviewed: Historical Data, Nursing Documentation, Vital Signs Vital Signs: Last Vital Signs Temp 98.7 F 12/18/17 18:05 Pulse 92 H 12/18/17 18:05 Resp 16 12/18/17 18:05 BP 108/68 12/18/17 18:05 Pulse Ox 99 12/18/17 19:48 - Medical History PMH: Asthma, Bronchitis, Depression (denies (from previous triage)), Schizophrenia (denies (from previous triage)), Chronic Pain (left knee) - Surgical History Surgical History: Back Surgery - Family History Family History: States: Unknown Family Hx - Immunization History Hx Tetanus Toxoid Vaccination: No Hx Influenza Vaccination: No Hx Pneumococcal Vaccination: No - Home Medications Home Medications: Ambulatory Orders Medication Instructions Recorded Albuterol Sulfate 09/29/17 Paxil 09/29/17 Risperdal 09/29/17 - Allergies Allergies/Adverse Reactions: Allergies Allergy/AdvReac Type Severity Reaction Status Date / Time Penicillins Allergy Intermediate VAGINAL Verified 09/29/17 00:44 INFECTION Review of Systems ROS Statement: Except As Marked, All Systems Reviewed And Found Negative Constitutional: Positive for: Other (body pain). Negative for: Fever, Chills Respiratory: Negative for: Cough, Shortness of Breath Gastrointestinal: Negative for: Nausea, Vomiting, Diarrhea Physical Exam - Reviewed Nursing Documentation Reviewed: Yes Vital Signs Reviewed: Yes - Physical Exam Comments: GENERAL APPEARANCE: Patient is awake, alert, oriented x 3, in no acute distress. SKIN: Warm, dry; (-) cyanosis, (-) rash. EYES: (-) conjunctival pallor, (-) scleral icterus, (-) conjunctival hemorrhage. ENMT: Mucous membranes moist. TMs: (-) erythema. Airway patent: (-) stridor. Pharynx: (-) erythema, (-) exudate. NECK: (-) tenderness, (-) stiffness, (-) meningismus, (-) lymphadenopathy. ABDOMEN AND GI: Soft; (-) tenderness, (-) guarding; (-) organomegaly; (-) mass ; (-) CVA tenderness. EXTREMITIES: (-) deformity; (-) cellulitis, (-) lymphangitis, (-) tenderness, ( +) FROM, (-) edema. NEURO AND PSYCH: Mental status as above; (-) focal findings. - ECG O2 Sat by Pulse Oximetry: 99 (RA) Pulse Ox Interpretation: Normal Medical Decision Making Medical Decision Making: Time: 1842 Initial Impression: UTI and body pain Initial Plan: --Urine Culture --POC Urine Test --Urinalysis Time: 1909 Patient is not in her room and no where to be found in the ED. Patient left the ER prior to completing her treatment. Scribe Attestation: Documented by Naina Marshall, acting as a scribe for Leonor Diop PA-C Provider Scribe Attestation: All medical record entries made by the Scribe were at my direction and personally dictated by me. I have reviewed the chart and agree that the record accurately reflects my personal performance of the history, physical exam, medical decision making, and the department course for this patient. I have also personally directed, reviewed, and agree with the discharge instructions and disposition. Disposition - Clinical Impression Clinical Impression: Myalgia - Disposition Referrals: FAMILY PROVIDER,NO [Family Provider] - Disposition: Left W/O Treatment Disposition Time: 19:10 Condition: UNKNOWN Forms: [employer] (Puerto Rican) - PA / PEARL GLUE OPERATOR / Resident Statement MD/DO has reviewed & agrees with the documentation as recorded.
== END 2017-12-18 19:05 | disposition left against medical advice (07) ==
LOC: SUPCPDRO 17:29 → H.ER 17:29
DX: M79.1 Myalgia (principal)